=== PATIENT | female | born 1945 | race Caucasian/White ===

== ENCOUNTER 2021-12-03 13:39 | Emergency (ER) | payer OTHER, MEDICARE, BC ==
[2021-12-03] MEDS ORDERED: Boostrix 0.5 ML (Tdap) VIAL ONE (15:07)
== END 2021-12-03 15:11 | disposition home or self-care (01) ==
LOC: CSHERS 13:39
DX: S51.802A Unspecified open wound of left forearm, initial encounter (principal); S60.222A Contusion of left hand, initial encounter; E03.9 Hypothyroidism, unspecified; I10 Essential (primary) hypertension; W17.89XA Other fall from one level to another, initial encounter; Y92.481 Parking lot as the place of occurrence of the external cause
CPT/HCPCS: 90715